=== PATIENT | female | born 1980 | race African-American/Black ===

== ENCOUNTER 2021-03-09 10:22 | Emergency (ER) | payer OTHER ==
[~2021-03-09] VITALS: Ht 157.5 cm; Wt 73.0 kg
[~2021-03-09 10:22] MED LIST: FERR-252 PO; IBUP-974 PO
[2021-03-09 10:29] VITALS: BP 180/100
[2021-03-09] MEDS ORDERED: LORazepam 1 MG TAB PO ONE (10:30)
[2021-03-09] MEDS ORDERED: ONDANSETRON 4 MG ODT PO ONE (10:30)
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
--- NOTE | 2021-03-09 11:08 | NUR ---
REPORT RECEIVED FROM PADMINI BABB FOR TRANSFER OF CARE
--- NOTE | 2021-03-09 11:51 | NUR ---
PATIENT ESCORTED TO RESTROOM VIA WHEELCHAIR
[2021-03-09] MEDS ORDERED: ONDA-188 SL (12:32)
[2021-03-09 12:47] VITALS: BP 133/90
== END 2021-03-09 12:47 | disposition home or self-care (01) ==
LOC: MED 10:22
DX: F41.9 Anxiety disorder, unspecified (principal); R42 Dizziness and giddiness; R11.0 Nausea; Z02.89 Encounter for other administrative examinations; Z88.0 Allergy status to penicillin; Z79.899 Other long term (current) drug therapy; V89.2XXA Person injured in unspecified motor-vehicle accident, traffic, initial encounter; Y93.89 Activity, other specified; Y92.89 Other specified places as the place of occurrence of the external cause; Y99.8 Other external cause status
CPT/HCPCS: 93005; 99283; Q0162